=== PATIENT | male | born 1990 | race Hispanic/Latino ===

== ENCOUNTER 2019-08-05 07:01 | Emergency (ER) | payer OTHER, SELFPAY ==
[2019-08-05 07:47] VITALS: BP 118/69; PULSE 90; RESP 13; TEMP 36.6; O2SAT 98
[2019-08-05 08:22] LABS: Influenza A - CEPHEID Flu A NEGATIVE (NEGATIVE); Influenza B - CEPHEID Flu B NEGATIVE (NEGATIVE)
--- NOTE | 2019-08-05 08:23 | ED.GENADULT ---
HPI - General Adult General Chief complaint: Fever Stated complaint: fever for a couple days Time Seen by Provider: 08/05/19 07:38 Source: patient Mode of arrival: Ambulatory Limitations: no limitations History of Present Illness HPI narrative: otherwise healthy 29-year-old male here for evaluation of 2 days of body aches, subjective fevers, sore throat. Also has had some cough. Has tried Tylenol for symptoms prior to arrival. Did not get the flu shot this year. No rashes. No problems breathing. No recent travel. Related Data Previous Rx's Medication Instructions Recorded penicillin V potassium 500 mg PO BID 10 Days #20 tab 08/05/19 Review of Systems Constitutional Constitutional: Reports fatigue, Reports fever(s) and Reports malaise ENT Ears, Nose, Mouth, and Throat: Denies sinus pressure and Reports sore throat Cardiovascular Cardiovascular: Denies chest pain and Denies dyspnea Respiratory Respiratory: Denies dyspnea Integumentary/Breasts Skin/Breast: Denies rash Neurologic Neurologic: Denies behavioral changes Psychiatric Psychiatric: Denies behavioral changes Endocrine Endocrine: Reports fatigue Hematologic/Lymphatic Hematologic/Lymphatic: Denies easy bleeding and Denies easy bruising Patient History Medical History Healthy adult (Acute) Social History Smoking Status: Never smoker Smoking Status: Never smoker Substance Use Type: does not use Exam Initial Vital Signs Initial Vital Signs: Vital Signs Temperature 97.9 F 08/05/19 07:47 Pulse Rate 90 08/05/19 07:47 Respiratory Rate 13 08/05/19 07:47 Blood Pressure 118/69 08/05/19 07:47 Pulse Oximetry 98 08/05/19 07:47 Const General: cooperative and comfortable Limitations: mental status not altered HENMT Head: normal to inspection and normocephalic Ears: TM's normal bilaterally Mouth: oral mucosae normal Throat: other ( Bilateral exudate) Resp Effort & Inspection: normal respiratory effort Auscultation: clear to auscultation bilaterally Cardio Rate: regular rate Rhythm: regular rhythm Skin Lesions: no lesions Rashes: no rashes Neuro General: alert and awake Cognition: normal cognition Speech: speech normal Extrem General: normal to inspection and capillary refill normal Psych Appearance: grossly normal and well kempt Course Orders Ordered: ED Orders 08/05/19 07:45 Flu test [Influenza A & B (PCR)] Stat Vital Signs Vital signs: Vital Signs - 8 hr 08/05/19 07:47 Temperature 97.9 F Pulse Rate 90 Respiratory Rate 13 Blood Pressure 118/69 Pulse Oximetry 98 Medical Decision Making Lab Data Lab results reviewed: Yes I reviewed the patient's lab results. Labs: Lab Results 08/05/19 Range/Units 07:45 Influenza A (RT-PCR) Flu a negative (NEGATIVE) Influenza B (RT-PCR) Flu b negative (NEGATIVE) Point of Care Testing Rapid Strep A Positive Point of care testing: Point of Care Testing Rapid Strep A Positive MDM Narrative Medical decision making narrative: flu negative, rapid strep is positive, this does fit his history and physical. Discussed with him the options to include IM shot versus p.o. medications. Patient opted for p.o. medications. No signs of peritonsillar abscess. Will treat with antibiotics. He was given return precautions. Expressed understanding and agreement. Discharge Plan Departure Patient Disposition: Home Clinical Impression: Acute streptococcal pharyngitis Instructions: Strep Throat Activity Restrictions/Additional Instructions: be sure to increase your fluid intake. You can take Tylenol and/or ibuprofen for any fevers or body aches. Take the antibiotics as directed. Contact your primary provider for follow-up. Prescriptions: New penicillin V potassium 500 mg tablet 500 mg PO BID 10 Days Qty: 20 RF: 0 Stand Alone Forms: Work Release Note
== END 2019-08-05 09:05 | disposition home or self-care (01) ==
PROVIDERS: Emergency Provider Emergency Medicine
DX: J02.0 Streptococcal pharyngitis (principal)
CPT/HCPCS: 87502; 87880; 99281; 99283

== ENCOUNTER 2019-09-19 03:45 | Emergency (ER) | payer OTHER, SELFPAY ==
--- NOTE | 2019-09-19 03:46 | ED.HA ---
HPI - Headache General Chief Complaint: Fever Stated Complaint: headache/fever/sore throat Time Seen by Provider: 09/19/19 03:46 Source: patient Mode of arrival: Ambulatory Limitations: no limitations History of Present Illness HPI Narrative: 29-year-old male nonsmoker with noncontributory medical history presents with a chief complaint headache, fever, sore throat and difficulty swallowing since yesterday. He had strep throat about a month ago and states it feels the same. He denies any runny nose or congestion. Denies chest pain or shortness of breath. He denies any nausea, vomiting or diarrhea. He denies any exposure to persons under suspicion for COVID-19. He states his headache is mild. He denies any obvious provocation or palliation. He has no neck pain and denies neurologic findings such as blurred vision, trouble with speech or focal neurologic findings MD Complaint: headache Onset (ago): hour(s) Onset description: gradual Quality: aching Relieving factors: nothing Exacerbating factors: none Associated symptoms: fever and other Treatments prior to arrival: ibuprofen Related Data Previous Rx's Medication Instructions Recorded penicillin V potassium 500 mg PO BID 10 Days #20 tab 08/05/19 amoxicillin-pot clavulanate 1 tab PO BID #20 tab 09/19/19 [Augmentin] Review of Systems Constitutional Constitutional: Denies chills, Denies fatigue, Reports fever(s), Denies frequent falls, Reports headache(s), Denies lethargy and Denies weakness Eyes Eyes: Denies change in vision, Denies eye discharge, Denies irritation and Denies loss of vision ENT Ears, Nose, Mouth, and Throat: Denies change in voice, Denies dizziness, Reports headache(s), Denies neck pain, Reports sore throat and Denies throat swelling Cardiovascular Cardiovascular: Denies chest pain, Denies irregular heart rhythm, Denies lightheadedness, Denies palpitations, Denies dyspnea, Denies dyspnea on exertion and Denies orthopnea Respiratory Respiratory: Denies cough, Denies dyspnea, Denies dyspnea on exertion and Denies wheezing Gastrointestinal Gastrointestinal: Denies abdominal pain, Denies change in bowel habits, Denies diarrhea, Denies nausea and Denies vomiting Genitourinary Genitourinary: Denies hematuria, Denies flank pain, Denies urinary incontinence and Denies urinary urgency Musculoskeletal Musculoskeletal: Denies back pain, Denies muscle weakness, Denies neck pain, Denies numbness and Denies tingling Integumentary/Breasts Skin/Breast: Denies pruritus, Denies erythema, Denies rash and Denies wounds Neurologic Neurologic: Denies behavioral changes, Denies confusion, Denies dizziness, Denies frequent falls, Reports headache(s), Denies loss of vision, Denies numbness, Denies tingling and Denies weakness Psychiatric Psychiatric: Denies anxiety, Denies behavioral changes, Denies confusion, Denies depression, Denies homicidal ideation and Denies suicidal ideation Endocrine Endocrine: Denies fatigue, Denies flushing and Denies palpitations Hematologic/Lymphatic Hematologic/Lymphatic: Denies easy bruising Allergic/Immunologic Allergic/Immunologic: Denies urticaria, Denies throat swelling and Denies wheezing Patient History Medical History Healthy adult (Acute) Social History Smoking Status: Never smoker Smoking Status: Never smoker Substance Use Type: does not use Exam Narrative Exam Narrative: GENERAL: 29 [] year old patient appears stated age. Well-nourished, well-developed patient, in mild distress. HEAD: Atraumatic. Normocephalic. EYES: Pupils equal round and reactive. Extraocular motions intact. No scleral icterus. No injection or drainage. ENT: Nose without bleeding, purulent drainage. Tender anterior lymphadenopathy. Posterior pharyngeal erythema with tonsillar swelling and no obvious exudates NECK: Trachea midline. Non tender CARDIOVASCULAR: Regular rate and rhythm without murmurs, gallops, or rubs. RESPIRATORY: Clear to auscultation. Breath sounds equal bilaterally. No wheezes, rales, or rhonchi. GASTROINTESTINAL: Abdomen soft, non-tender, nondistended. EXTREMITIES: No edema or joint tenderness. BACK: Nontender without deformity or crepitance. No flank tenderness. NEURO: AOx3. SKIN: No rash or erythema of visible areas Initial Vital Signs Initial Vital Signs: Vital Signs Temperature 98.9 F 09/19/19 03:50 Pulse Rate 129 H 09/19/19 03:50 Respiratory Rate 15 09/19/19 03:50 Blood Pressure 105/66 09/19/19 03:50 Pulse Oximetry 100 09/19/19 03:50 Course Orders Ordered: ED Orders 09/19/19 03:55 Basic Metabolic Panel Stat Complete Blood Count AUTO DIFF Stat Sodium Chloride (Normal Saline 0.9%) 1,000 mls @ 1,000 mls/hr IV BOLUS ONE Stop: 09/19/19 04:50 Last Admin: 09/19/19 03:59 Dose: 1,000 mls/hr Documented by: MARLENE Discontinued Medications Amoxicillin/Clavulanate Potassium (Augmentin 875-125 Mg) 1 tab PO NOW ONE Stop: 09/19/19 04:11 Dexamethasone (Decadron) 10 mg IV NOW ONE Stop: 09/19/19 03:54 Last Admin: 09/19/19 03:59 Dose: 10 mg Documented by: MARLENE Ketorolac Tromethamine (Toradol) 15 mg IV NOW ONE Stop: 09/19/19 03:52 Last Admin: 09/19/19 03:59 Dose: 15 mg Documented by: MARLENE Vital Signs Vital signs: Vital Signs - 8 hr 09/19/19 03:50 Temperature 98.9 F Pulse Rate 129 H Respiratory Rate 15 Blood Pressure 105/66 Pulse Oximetry 100 MDM - Headache Lab Data Result diagrams: 09/19/19 03:55 09/19/19 03:55 Labs: Lab Results 09/19/19 09/19/19 Range/Units 03:55 03:55 WBC 20.5 H (4.5-11.0) X10^3/uL RBC 5.17 (4.5-5.9) X10^6/uL Hgb 15.7 (13.5-17.5) g/dL Hct 45.5 (41-53) % MCV 87.9 (80-100) fL MCH 30.4 (26-34) PG MCHC 34.6 (30-36) % RDW 13.7 (11.6-14.8) % Plt Count 178 (150-400) X10^3/uL Neut % (Auto) 89.5 H (50-75) % Lymph % (Auto) 4.3 L (25-40) % [place] % (Auto) 5.8 (3-14) % Eos % (Auto) 0.1 L (2-4) % Baso % (Auto) 0.3 (0-2) % Neut # (Auto) 25651 H (6779-9503) /uL Lymph # (Auto) 900 L (2519-0002) /uL [place] # (Auto) 1200 H (0-900) /uL Eos # (Auto) 0 (0-450) /uL Baso # (Auto) 100 (0-100) /uL Sodium 136 L (137-145) mmol/L Potassium 4.1 (3.4-5.1) mmol/L Chloride 102 (98-107) mmol/L Carbon Dioxide 26 (22-32) mmol/L BUN 15 (9-20) mg/dL Creatinine 0.94 (0.66-1.25) mg/dL Estimated GFR > 60.0 (>60) mL/min BUN/Creatinine Ratio 16.0 (6-22) Glucose 133 H (70-100) mg/dL Calcium 9.2 (8.4-10.2) mg/dL Point of Care Testing Rapid Strep A Positive Discharge Plan Departure Patient Disposition: Home Clinical Impression: Strep pharyngitis Instructions: DI for Strep Throat Activity Restrictions/Additional Instructions: *You have been diagnosed with [acute streptococcal pharyngitis] *What to do: *Take medications as directed: Prescription for Augmentin sent to [facility] in [place] *Follow up with your primary care provider in 2-3 days, call for an appointment. Let them know you were seen in the Emergency Department and that we ask that you be seen in follow up *Return to ER if you should have any new, worsening or concerning symptoms Prescriptions: New amoxicillin-pot clavulanate [Augmentin] 875-125 mg tablet 1 tab PO BID Qty: 20 RF: 0 No Action penicillin V potassium 500 mg tablet 500 mg PO BID 10 Days Qty: 20 RF: 0
[2019-09-19 03:50] VITALS: BP 105/66; PULSE 129; RESP 15; TEMP 37.2; O2SAT 100; BMI 29.6
[2019-09-19] MEDS: SODIUM CHLORIDE 0.9% 1,000 ML 1000 ML IV (03:59)
[2019-09-19] MEDS: DEXAMETHASONE 10 MG/ML VIAL IV (03:59)
[2019-09-19] MEDS: KETOROLAC 60 MG/2 ML VIAL 15 MG IV (03:59)
[2019-09-19 04:12] LABS: Add Manual Diff / Slide Review NO; Basophils Absolute Auto 100 /uL (0-100); Basophils Percent Auto 0.3 % (0-2); Eosinophils Absolute Auto 0 /uL (0-450); Eosinophils Percent Auto 0.1 % (2-4); Hematocrit 45.5 % (41-53); Hemoglobin 15.7 g/dL (13.5-17.5); Lymphocytes Absolute Auto 900 /uL (1100-4500); Lymphocytes Percent Auto 4.3 % (25-40); Mean Corpuscular HGB Conc 34.6 % (30-36); Mean Corpuscular Hemoglobin 30.4 PG (26-34); Mean Corpuscular Volume 87.9 fL (80-100); Monocytes Absolute Auto 1200 /uL (0-900); Monocytes Percent Auto 5.8 % (3-14); Neutrophils Absolute Auto 18400 /uL (1500-7000); Neutrophils Percent Auto 89.5 % (50-75); Platelet Count 178 X10^3/uL (150-400); Red Blood Cell Count 5.17 X10^6/uL (4.5-5.9); Red Cell Distribution Width 13.7 % (11.6-14.8); White Blood Cell Count 20.5 X10^3/uL (4.5-11.0)
[2019-09-19 04:19] LABS: Blood Urea Nitrogen 15 mg/dL (9-20); Calcium 9.2 mg/dL (8.4-10.2); Carbon Dioxide 26 mmol/L (22-32); Chloride 102 mmol/L (98-107); Estimated Glomerular Filt Rate > 60.0 mL/min (>60); Glucose 133 mg/dL (70-100); HEMOLYSIS < 15 (0-50); Potassium 4.1 mmol/L (3.4-5.1); Sodium 136 mmol/L (137-145)
[2019-09-19] MEDS: AMOXICILLIN/CLAV 875/125 MG 1 TAB PO (04:48)
[2019-09-19 05:10] VITALS: BP 99/51; PULSE 97; RESP 15; TEMP 37.1; O2SAT 96
--- NOTE | 2019-09-20 12:07 | PC.NURSE ---
rhonda akins called augmentin into [facility] as pt requested. per dr. gar
== END 2019-09-19 05:12 | disposition home or self-care (01) ==
PROVIDERS: Emergency Provider Emergency Medicine
DX: J02.0 Streptococcal pharyngitis (principal); R51 Headache
CPT/HCPCS: 36415; 80048; 85025; 87880; 96361; 96374; 96375; 99284; J1100; J1885

== ENCOUNTER 2021-04-18 20:02 | Emergency (ER) | payer OTHER, SELFPAY ==
[2021-04-18 20:08] VITALS: BP 125/77; PULSE 83; RESP 16; TEMP 36.6; O2SAT 99
[2021-04-18] MEDS: ONDANSETRON 4 MG/2 ML INJ IV (20:56)
[2021-04-18] MEDS: SUMAtriptan 6 MG/0.5 ML VIAL SUBCUT (20:56)
[2021-04-18 21:02] VITALS: BP 125/77; PULSE 76; O2SAT 98
[2021-04-18] MEDS: SODIUM CHLORIDE 0.9% 1,000 ML 1000 ML IV (21:03)
--- NOTE | 2021-04-19 02:31 | ED_ITS ---
HPI - Headache General Chief Complaint: Headache Stated Complaint: MIGRAINE Time Seen by Provider: 04/18/21 21:57 Mode of arrival: Ambulatory History of Present Illness HPI Narrative: 30-year-old gentleman with a history of migraines who has had success with Imitrex in the past presents with a 2 day migraine headache and no accessed Imitrex as he is recently moved to the area. He is very clear on what his triggers are including sleep deprivation. He describes headache that is been present for 2 days associated with nausea and general malaise. He describes no acute neurologic changes otherwise no fever, cough, chills, vomiting, diarrhea, palpitations, chest pain. Related Data Previous Rx's Medication Instructions Recorded amoxicillin 875 mg-potassium 1 tab PO BID #20 tab 09/19/19 clavulanate 125 mg tablet (Augmentin) sumatriptan succinate 50 mg tablet 50 mg PO Q2-4H PRN #9 tab 04/18/21 (Imitrex) Allergies Allergy/AdvReac Type Severity Reaction Status Date / Time No Known Drug Allergies Allergy Verified 09/19/19 04:45 Review of Systems Review of Systems Narrative: Remainder of complete review of systems is otherwise unremarkable except for that included in the HPI. Patient History Medical History (Updated 04/19/21 @ 03:11 by Ivonne Coy MD) Healthy adult Migraine Social History Smoking Status: Never smoker Smoking Status: Never smoker alcohol intake frequency: a few times a month Substance Use Type: does not use Exam Narrative Exam Narrative: General: Healthy appearing, in moderate distress secondary to his headache however Able to give a complete and coherent history. Well- nourished well-developed HEENT: Moist mucous membranes, normal sclera with reactive pupils, Respiratory: Lungs are clear to auscultation, no wheezing no rales no rhonchi. Full and symmetrical air movement Cardiac: Regular rate and rhythm no murmurs no bruits Abdomen: Soft, nontender, good bowel tones, no flank pain Skin: Warm and dry, no rashes Neurologic: Grossly neurologically intact with no obvious asymmetries or abnormalities Extremities: No trauma, well perfused Psych: Cooperative, appropriate insight and affect Initial Vital Signs Initial Vital Signs: Vital Signs Temperature 97.8 F 04/18/21 20:08 Pulse Rate 83 04/18/21 20:08 Respiratory Rate 16 04/18/21 20:08 Blood Pressure 125/77 04/18/21 20:08 Pulse Oximetry 99 04/18/21 20:08 Course Orders Ordered: Discontinued Medications Sodium Chloride (Normal Saline 0.9%) 1,000 mls @ 1,000 mls/hr IV BOLUS ONE Stop: 04/18/21 22:00 Last Infusion: 04/18/21 22:03 Dose: 0 mls/hr Documented by: Admin: 04/18/21 21:03 Dose: 1,000 mls/hr Documented by: JOAN Ondansetron HCl (Ondansetron 4 Mg Odt) 4 mg SL NOW ONE Stop: 04/18/21 20:50 Last Admin: 04/18/21 21:02 Dose: Not Given Documented by: JOAN Ondansetron HCl (Ondansetron 4 Mg/2 Ml Inj) 4 mg IV NOW ONE Stop: 04/18/21 20:52 Last Admin: 04/18/21 20:56 Dose: 4 mg Documented by: JOAN Sumatriptan Succinate (Sumatriptan 6 Mg/0.5 Ml Vial) 6 mg SUBCUT NOW ONE Stop: 04/18/21 20:50 Last Admin: 04/18/21 20:56 Dose: 6 mg Documented by: JOAN Vital Signs Vital signs: Vital Signs - 8 hr 04/18/21 20:08 04/18/21 21:02 Temperature 97.8 F Pulse Rate 83 76 Respiratory Rate 16 Blood Pressure 125/77 125/77 Pulse Oximetry 99 98 MDM - Headache MDM Narrative Medical decision making narrative: 30-year-old gentleman presents with migraine headache for 2 days who responds beautifully to IM Imitrex a L of fluid and oral Zofran. He is pain-free at time of discharge. He is given a prescription for oral Imitrex that has been helpful in the past. There is no evidence of acute neurologic changes, meningitis or suggestion of brain abnormality. No obvious signs of infection and he is safe for home discharge Discharge Plan Departure Patient Disposition: Home Clinical Impression: Migraine Qualifiers: Migraine type: without aura Status migrainosus presence: without status migrainosus Intractability: not intractable Qualified Code(s): G43.009 - Migraine without aura, not intractable, without status migrainosus Instructions: DI for Headache Activity Restrictions/Additional Instructions: Thank you for coming in tonight I am glad your migraine has improved. I have given you a prescription for Imitrex which you said has been helpful in the past. [facility] [place] I would encourage you to follow-up with a primary care physician. Prescriptions: New sumatriptan succinate [Imitrex] 50 mg tablet 50 mg PO Q2-4H PRN (Reason: migraine headache) Qty: 9 RF: 3 No Action amoxicillin-pot clavulanate [Augmentin] 875-125 mg tablet 1 tab PO BID Qty: 20 RF: 0
== END 2021-04-18 22:26 | disposition home or self-care (01) ==
PROVIDERS: Emergency Provider Emergency Medicine
DX: G43.009 Migraine without aura, not intractable, without status migrainosus (principal)
CPT/HCPCS: 36415; 96361; 96372; 96374; 99284; J2405; J3030

== ENCOUNTER 2021-04-22 13:45 | Emergency (ER) | payer OTHER, SELFPAY ==
[2021-04-22 14:05] VITALS: BP 143/76; PULSE 74; RESP 16; TEMP 36.7; O2SAT 98
[2021-04-22 14:35] LABS: Appearance Urine UA CLEAR; Bilirubin Urine UA NEGATIVE (NEGATIVE); Color Urine UA YELLOW; Glucose Urine UA NEGATIVE (Negative); Ketones Urine UA NEGATIVE (NEGATIVE); Leukocyte Esterase Urine UA NEGATIVE (NEGATIVE); Nitrite Urine UA NEGATIVE (Negative); Occult Blood Urine UA 3+ (Negative); Protein Urine UA TRACE (Negative); Specific Gravity Urine UA 1.015 (1.000-1.035); Urobilinogen Urine UA 0.2 E.U./dL (0.2); pH Urine UA 7.5 (4.5-8.0)
[2021-04-22 14:58] LABS: Bacteria Urine None Seen; Culture Indicated Urine Cult Not Indicated; RBC Urine 10-30/HPF (0-5/HPF); Squamous Epithelial Cell Urine 0-1 /HPF (0-5/HPF); WBC Urine 0-1/HPF (0-5/HPF)
[2021-04-22 16:05] LABS: Urine N gonorrhoeae NOT DETECTED
[2021-04-22 16:10] LABS: Urine Chlamydia NOT DETECTED
--- NOTE | 2021-04-22 16:48 | ED.MALEGU ---
HPI - Male Genitourinary <Rahul Parikh PA-C - Last Filed: 04/22/21 17:35> General Chief complaint: Urogenital-Male Stated complaint: Hematuria today Time Seen by Provider: 04/22/21 13:49 Source: patient Mode of arrival: Ambulatory History of Present Illness HPI Narrative: Patient is a 30-year-old male presenting to the emergency department for an evaluation of hematuria. Patient states that he has experienced intermittent blood in his urine for the last month and half. He explains that he occasionally sees a small amount of blood at the end of micturition, however today he noticed a larger volume of blood with clots after urinating. Patient denies any trauma that preceded his symptoms. Additionally, he states that he experiences mild discomfort with the hematuria. Patient states that he is not sexually active and has no concerns for sexually transmitted infections. He denies fever, chills, abdominal pain, nausea, vomiting, diarrhea, penile discharge, testicular pain, testicular swelling. Patient states that he does not use tobacco products any reports having a vasectomy approximately 2 years ago. No other concerns voiced at this time. Related Data Previous Rx's Medication Instructions Recorded amoxicillin 875 mg-potassium 1 tab PO BID #20 tab 09/19/19 clavulanate 125 mg tablet (Augmentin) sumatriptan succinate 50 mg tablet 50 mg PO Q2-4H PRN #9 tab 04/18/21 (Imitrex) Allergies Allergy/AdvReac Type Severity Reaction Status Date / Time No Known Drug Allergies Allergy Verified 04/22/21 14:06 Review of Systems <Rahul Parikh PA-C - Last Filed: 04/22/21 17:35> Constitutional Constitutional: Denies chills, Denies fever(s), Denies lethargy and Denies weakness ENT Ears, Nose, Mouth, and Throat: Denies change in voice, Denies neck pain and Denies sore throat Cardiovascular Cardiovascular: Denies chest pain, Denies irregular heart rhythm, Denies lightheadedness, Denies palpitations, Denies dyspnea, Denies dyspnea on exertion and Denies orthopnea Respiratory Respiratory: Denies cough, Denies dyspnea, Denies dyspnea on exertion and Denies wheezing Gastrointestinal Gastrointestinal: Denies abdominal pain, Denies change in bowel habits, Denies diarrhea, Denies nausea and Denies vomiting Genitourinary Genitourinary: Reports hematuria, Denies dysuria, Denies dysuria, Denies testicular mass, Denies testicular pain and Reports other (No penile discharge) Musculoskeletal Musculoskeletal: Denies neck pain Integumentary/Breasts Skin/Breast: Denies pruritus, Denies erythema, Denies rash and Denies wounds Neurologic Neurologic: Denies weakness Endocrine Endocrine: Denies palpitations Allergic/Immunologic Allergic/Immunologic: Denies wheezing Patient History <Rahul Parikh PA-C - Last Filed: 04/22/21 17:35> Medical History Healthy adult Migraine Social History Smoking Status: Never smoker Smoking Status: Never smoker alcohol intake frequency: a few times a month Substance Use Type: does not use Exam <Rahul Parikh PA-C - Last Filed: 04/22/21 17:35> Narrative Exam Narrative: GENERAL: 30 year old patient appears stated age. Well-developed patient, in no acute distress. HEAD: Atraumatic. Normocephalic. EYES: Pupils equal round and reactive. Extraocular motions intact. No scleral icterus. No injection or drainage. ENT: Nose without bleeding, purulent drainage. Throat without erythema, tonsillar hypertrophy or exudate. Airway patent. NECK: Trachea midline. Non tender CARDIOVASCULAR: Regular rate and rhythm without murmurs, gallops, or rubs. RESPIRATORY: Clear to auscultation. Breath sounds equal bilaterally. No wheezes, rales, or rhonchi. GASTROINTESTINAL: Abdomen soft, non-tender, nondistended. EXTREMITIES: No edema or joint tenderness. BACK: Nontender without deformity or crepitance. No flank tenderness. NEURO: AOx3. SKIN: No rash or erythema of visible areas Initial Vital Signs Initial Vital Signs: Vital Signs Temperature 98.0 F 04/22/21 14:05 Pulse Rate 74 04/22/21 14:05 Respiratory Rate 16 04/22/21 14:05 Blood Pressure 143/76 H 04/22/21 14:05 Pulse Oximetry 98 04/22/21 14:05 <El Aranda DO - Last Filed: 04/22/21 18:05> Initial Vital Signs Initial Vital Signs: Vital Signs Temperature 98.0 F 04/22/21 14:05 Pulse Rate 74 04/22/21 14:05 Respiratory Rate 16 04/22/21 14:05 Blood Pressure 143/76 H 04/22/21 14:05 Pulse Oximetry 98 04/22/21 14:05 Course <Rahul Parikh PA-C - Last Filed: 04/22/21 17:35> Course Course Narrative: Patient is a 30-year-old male presenting to the emergency department for an evaluation of hematuria. Orders Ordered: ED Orders 04/22/21 14:30 Chlamydia Gonorrhea PCR -URINE Stat Urinalysis and Microscopic Stat Vital Signs Vital signs: Vital Signs - 8 hr 04/22/21 14:05 Temperature 98.0 F Pulse Rate 74 Respiratory Rate 16 Blood Pressure 143/76 H Pulse Oximetry 98 <El Aranda DO - Last Filed: 04/22/21 18:05> Orders Ordered: ED Orders 04/22/21 14:30 Chlamydia Gonorrhea PCR -URINE Stat Urinalysis and Microscopic Stat Vital Signs Vital signs: Vital Signs - 8 hr 04/22/21 14:05 Temperature 98.0 F Pulse Rate 74 Respiratory Rate 16 Blood Pressure 143/76 H Pulse Oximetry 98 MDM - Male Genitourinary <Rahul Parikh PA-C - Last Filed: 04/22/21 17:35> Lab Data Labs: Lab Results 04/22/21 04/22/21 Range/Units 14:30 14:30 Urine Color Yellow Urine Appearance Clear Urine pH 7.5 (4.5-8.0) Ur Specific [place] 1.015 (1.000-1.035) Urine Protein Trace H (Negative) Urine Glucose (UA) Negative (Negative) g/dL Urine Ketones Negative (NEGATIVE) Urine Occult Blood 3+ H (Negative) Urine Nitrate Negative (Negative) Urine Bilirubin Negative (NEGATIVE) Urine Urobilinogen 0.2 (0.2) E.U./dL Ur Leukocyte Esterase Negative (NEGATIVE) Urine RBC 10-30/hpf H (0-5/HPF) Urine WBC 0-1/hpf (0-5/HPF) Ur Squamous Epith Cells 0-1 /hpf (0-5/HPF) Urine Bacteria None seen (None) Ur Culture Indicated? Cult not indicated Ur Chlamydia DNA (PCR) Not detected N gonorrhoeae DNA (PCR) Not detected MDM Narrative Medical decision making narrative: Patient is a 30-year-old male presenting to the emergency department for an evaluation of hematuria. To consider urinary tract infection versus nephrolithiasis. History and physical examination overall do not align with the urinary tract infection or kidney stone. No CVA tenderness appreciated on exam, and the lack of pain associated with his hematuria makes nephrolithiasis less likely. Discussed with patient the need to follow-up with his primary care provider. Explain to him that the likelihood of him having an infection or kidney stone is less likely, at this time he feels comfortable being discharged home with instructions to follow-up with his primary care provider as soon as possible to schedule the earliest available appointment. Strict return precautions discussed with the patient prior to discharge. <El Aranda, DO - Last Filed: 04/22/21 18:05> Lab Data Labs: Lab Results 04/22/21 04/22/21 Range/Units 14:30 14:30 Urine Color Yellow Urine Appearance Clear Urine pH 7.5 (4.5-8.0) Ur Specific [place] 1.015 (1.000-1.035) Urine Protein Trace H (Negative) Urine Glucose (UA) Negative (Negative) g/dL Urine Ketones Negative (NEGATIVE) Urine Occult Blood 3+ H (Negative) Urine Nitrate Negative (Negative) Urine Bilirubin Negative (NEGATIVE) Urine Urobilinogen 0.2 (0.2) E.U./dL Ur Leukocyte Esterase Negative (NEGATIVE) Urine RBC 10-30/hpf H (0-5/HPF) Urine WBC 0-1/hpf (0-5/HPF) Ur Squamous Epith Cells 0-1 /hpf (0-5/HPF) Urine Bacteria None seen (None) Ur Culture Indicated? Cult not indicated Ur Chlamydia DNA (PCR) Not detected N gonorrhoeae DNA (PCR) Not detected Discharge Plan Departure Patient Disposition: Home Clinical Impression: Hematuria Qualifiers: Hematuria type: unspecified type Qualified Code(s): R31.9 - Hematuria, unspecified Instructions: DI for Hematuria Activity Restrictions/Additional Instructions: *You have been diagnosed with hematuria *What to do: *Please continue to take your regular medications as directed. [ ] New medication prescriptions sent to your pharmacy: [ ] [ ] New medication written as a paper prescription [X] No new medications given *Please follow up with your primary care provider in the next 24-48 hours call for an appointment. Let them know you were seen in the Emergency Department and that we ask that you be seen in follow up. We will electronically transmit a record of today's note if your PCP is in our system. *If you do not have a primary care provider please contact the [facility] Resource line at [phone]. They will ask some questions about your medical history and help get you set up with a doctor in the community. *Return to Emergency Department if you should have any new, worsening or concerning symptoms, such as [fever greater than 101 F, shaking chills, worsening pain, persistent vomiting or other bothersome symptoms] Prescriptions: No Action amoxicillin-pot clavulanate [Augmentin] 875-125 mg tablet 1 tab PO BID Qty: 20 RF: 0 sumatriptan succinate [Imitrex] 50 mg tablet 50 mg PO Q2-4H PRN (Reason: migraine headache) Qty: 9 RF: 3 Referrals: Ashly Acosta MD [Physician] - As soon as possible <El Aranda DO - Last Filed: 04/22/21 18:05> [facility] Dr Aranda Co-Sign Statement: I was available for consultation during this patient's emergency department visit. This chart is signed by myself for administrative purposes only. I did not have direct contact with this patient during this visit. They were seen independently by the APC.
== END 2021-04-22 17:15 | disposition home or self-care (01) ==
PROVIDERS: Emergency Medicine; Emergency Provider Physician Assistant
DX: R31.9 Hematuria, unspecified (principal)
CPT/HCPCS: 81001; 87491; 87591; 99281; 99282

== ENCOUNTER 2021-10-25 21:03 | Emergency (ER) | payer OTHER, SELFPAY ==
[2021-10-25 21:08] VITALS: BP 117/75; PULSE 80; RESP 18; TEMP 36.6; O2SAT 97; BMI 27.6
--- NOTE | 2021-10-26 00:55 | ED_ITS ---
HPI - Headache General Chief Complaint: Headache Stated Complaint: migraine Time Seen by Provider: 10/26/21 00:55 Mode of arrival: Ambulatory Limitations: no limitations History of Present Illness HPI Narrative: This is a 31-year-old male who comes to the emergency department with complaint of migraine. Patient has a history of migraines he states this is his typical migraine he had Tylenol and baclofen around 6:00 p.m. in the evening with minimal improvement. He states his symptoms started in the last 2 days. He denies fevers, no vision changes, new numbness, tingling or weakness or difficulty with movement. No new neck or back pain. Patient has had some nausea but no vomiting. He denies any other GI or urinary symptoms. Patient did receive Imitrex on his last visit IM and it was helpful at that time. Related Data Previous Rx's Medication Instructions Recorded amoxicillin 875 mg-potassium 1 tab PO BID #20 tab 09/19/19 clavulanate 125 mg tablet (Augmentin) sumatriptan succinate 50 mg tablet 50 mg PO Q2-4H PRN #9 tab 04/18/21 (Imitrex) sumatriptan succinate 100 mg 100 mg PO Q2-4H PRN #10 tab 10/26/21 tablet (Imitrex) Allergies Allergy/AdvReac Type Severity Reaction Status Date / Time No Known Drug Allergies Allergy Verified 10/25/21 21:11 Review of Systems Review of Systems ROS Unobtainable: All systems reviewed & are unremarkable except as noted in HPI and below Patient History Medical History Healthy adult Migraine Social History Smoking Status: Never smoker Smoking Status: Never smoker alcohol intake frequency: a few times a month Substance Use Type: does not use Exam Narrative Exam Narrative: GEN: well nourished, well appearing male, alert and oriented x 3, patient appears to be in mild distress. HEENT: Atraumatic, pupils are equal round reactive to light, mild photophobia, extraocular movements are intact, nares are clear, TMs are clear with no fluid, there is no conjunctival pallor. Throat is clear without any exudates, erythema, tonsillar enlargement or uvular deviation HEART: Regular rate and rhythm without murmur, clicks, rubs. LUNGS:Lungs clear to auscultation, no wheezes, rales, crackles, chest moves symmetrically ABD:bowel sounds normal, soft, non-tender, no guarding, rebound, rigidity, no masses noted, no hepatosplenomegaly MSCL: Non-tender, no muscle atrophy, muscles strength 5/5 upper and lower extremities, full range of motion, normal gait NEURO:CN 2-12 intact, sensation normal SKIN: No rash or erythema, no petechiae. Initial Vital Signs Initial Vital Signs: Vital Signs Temperature 97.9 F 10/25/21 21:08 Pulse Rate 80 10/25/21 21:08 Respiratory Rate 18 10/25/21 21:08 Blood Pressure 117/75 10/25/21 21:08 Pulse Oximetry 97 10/25/21 21:08 Scores GCS Spur coma scale eye opening: Spontaneous Spur coma scale verbal response: Orientated Ariel coma scale motor response: Obey commands Ariel coma scale total score: 15 Course Orders Ordered: Discontinued Medications Sumatriptan Succinate (Sumatriptan 25 Mg Tablet) 100 mg PO Q2H PRN PRN Reason: Headache Sumatriptan Succinate (Sumatriptan 25 Mg Tablet) 100 mg PO NOW ONE Stop: 10/26/21 01:13 Last Admin: 10/26/21 01:34 Dose: 100 mg Documented by: SHIVANI Reevaluation(s) Reevaluation #1: Patient is feeling better after Imitrex and would like to return home. He does have a primary care physician that he can follow. Time: 02:51 Vital Signs Vital signs: Vital Signs - 8 hr 10/26/21 01:09 Pulse Rate 67 Respiratory Rate 18 Blood Pressure 101/66 Pulse Oximetry 100 MDM - Headache MDM Narrative Medical decision making narrative: This is a 31-year-old male with his typical migraine symptoms. Patient has had Imitrex here in the department in the past and responded well and was given a dose in the department with good improvement. Patient did not have any red flag symptoms warranting further evaluation at this time. Return precautions discussed. Discharge Plan Departure Patient Disposition: Home Clinical Impression: Migraine Instructions: DI for Migraine Activity Restrictions/Additional Instructions: Please follow-up with primary care for recheck, if you do not have one you can call [phone] to establish a primary care physician. Prescription for Imitrex was included and has been sent to [facility] in [place]. Please return for rapidly worsening symptoms, fevers, sudden severe headaches, new vision changes, persistent vomiting, passing out, new chest pain or shortness of breath, numbness or weakness or difficulty using your arms or legs or other new or concerning symptoms. Prescriptions: New sumatriptan succinate [Imitrex] 100 mg tablet 100 mg PO Q2-4H PRN (Reason: migraine headache) Qty: 10 0RF Rx Instructions: You may repeat dose (100mg) x1 to be taken 2 hours after first dose. Do not exceed 2 doses (200mg) per 24 hrs No Action amoxicillin-pot clavulanate [Augmentin] 875-125 mg tablet 1 tab PO BID Qty: 20 0RF sumatriptan succinate [Imitrex] 50 mg tablet 50 mg PO Q2-4H PRN (Reason: migraine headache) Qty: 9 3RF Rx Instructions: do not exceed 4 doses per 24 hrs
[2021-10-26 01:09] VITALS: BP 101/66; PULSE 67; RESP 18; O2SAT 100
[2021-10-26] MEDS: SUMAtriptan 25 MG TABLET 100 MG PO (01:34)
== END 2021-10-26 02:59 | disposition home or self-care (01) ==
PROVIDERS: Emergency Provider Emergency Medicine
DX: G43.909 Migraine, unspecified, not intractable, without status migrainosus (principal)
CPT/HCPCS: 99283